=== PATIENT | male | born 1960 | race African-American/Black ===

== ENCOUNTER 2021-02-11 17:20 | Emergency (ER) | payer MEDICARE ==
[2021-02-11 18:17] LABS: BASOPHIL 0.3 % (0-2); EOSINOPHIL 0 % (0-5); HCT 50.1 % (42.0-52.0); HGB 17.5 g/dl (13.2-18.0); LYMPHOCYTE 11.3 % (15-48); MCH 28.5 pg (25.0-31.0); MCHC 34.9 g/dL (32.0-36.0); MCV 81.5 fL (78.0-100.0); MONOCYTE 14.4 % (0-12); NEUTROPHIL 73.9 % (41-80); NRBC 0; PLT 197 K/uL (150-400); RBC 6.15 M/uL (4.70-6.00); RDW 12.6 % (11.5-14.0); WBC 7.1 K/uL (4.0-10.5)
[2021-02-11 18:44] LABS: ALBUMIN 3.7 g/dL (3.4-5.0); BILIRUBIN - TOTAL 0.6 mg/dL (0.2-1.0); BUN/CREAT RATIO (CALC) 14.1 RATIO; CREATININE 1.49 mg/dL (0.67-1.17); GLOBULIN (CALCULATION) 4.1 g/dL; POTASSIUM 4.5 mmol/L (3.5-5.1); TOTAL PROTEIN 7.8 g/dL (6.4-8.2)
== END 2021-02-11 21:33 | disposition home or self-care (01) ==
LOC: FER 17:20
PROVIDERS: Emergency Medicine
DX: R55 Syncope and collapse (principal); F17.200 Nicotine dependence, unspecified, uncomplicated
CPT/HCPCS: 36415; 70450; 71045; 71275; 80053; 84484; 85025; 85379; 93005; J7030; Q9967